=== PATIENT | female | born 1960 | race Hispanic/Latino ===

== ENCOUNTER 2017-01-18 08:32 | Day surgery (SDC) | payer BC ==
[2017-01-15 08:59] VITALS: BMI 26.4
[2017-01-18] MEDS ORDERED: Propofol 10 mg/ml Inj (20 ML) ONE ×2 (09:18→10:02)
[2017-01-18] MEDS ORDERED: Sodium Chloride 0.9% 1,000 ML IV SCH (10:15)
[2017-01-18 11:03] VITALS: BP 101/70; PULSE 67; RESP 19; TEMP 97.6; O2SAT 99
== END 2017-01-18 11:32 | disposition home or self-care (01) ==
LOC: ENDO 08:32
PROVIDERS: ATTEND Internal Medicine Gastroenterology
DX: Z12.11 Encounter for screening for malignant neoplasm of colon (principal); D12.4 Benign neoplasm of descending colon; K62.1 Rectal polyp; K57.30 Diverticulosis of large intestine without perforation or abscess without bleeding; K64.8 Other hemorrhoids; K63.89 Other specified diseases of intestine
CPT/HCPCS: 45380; 45384; 88305; J2704; J7040 ×2